=== PATIENT | male | born 1950 | race Caucasian/White ===

== ENCOUNTER 2016-06-04 11:22 | Emergency (ER) | payer MEDICARE, OTHER ==
[~2016-06-04] VITALS: Ht 170.2 cm; Wt 100.0 kg
[2016-06-04] MEDS ORDERED: NITROGLYCERIN SUBLINGUAL 0.4 MG (NITROQUICK) TABLET SL PRN (11:35)
[2016-06-04 11:55] LABS: BASOPHILS % (AUTO) 0 % (0-2); EOSINOPHILS # (AUTO) 0.3 10^3uL; EOSINOPHILS % (AUTO) 3 % (0-4); LYMPHOCYTES # (AUTO) 2.1 X10^3; MEAN CORPUSCULAR HEMOGLOBIN 31.7 PG (26.0-34.0); MEAN CORPUSCULAR HGB CONC 34.2 g/dL (31.0-37.0); MEAN CORPUSCULAR VOLUME 93 FL (80-100); MEAN PLATELET VOLUME 10.9 FL (6.0-9.5); MONOCYTES # (AUTO) 0.7 X10^3; MONOCYTES % (AUTO) 8 % (3-11); NEUTROPHILS # (AUTO) 4.9 X10^3; NEUTROPHILS % (AUTO) 62 % (51-67); PLATELET COUNT 187 10^3uL (150-450); WHITE BLOOD COUNT 7.87 10^3uL (4.0-11.0)
[2016-06-04 12:06] LABS: ALBUMIN 4.5 g/dL (3.4-5.0); ALKALINE PHOSPHATASE 77 U/L (38-126); ANION GAP 15.5 MEQ/L (3-15); BUN/CREATININE RATIO 19 (10-20); CALCULATED IONIZED CALCIUM 3.9 mg/dL (3.8-4.6); CREATINE KINASE 209 U/L (55-170); TOTAL PROTEIN 8.5 g/dL (6.4-8.5)
[2016-06-04 13:03] LABS: BILIRUBIN,URINE Negative (Negative); CLARITY,URINE Clear; COLOR,URINE Yellow; GLUCOSE, URINE (UA) Negative (Negative); LEUKOCYTE ESTERASE ,URINE Negative (Negative); UROBILINOGEN,URINE 0.2 mg/dL (0.2-1.0)
[2016-06-04 13:10] LABS: AMPHETAMINE SCREEN, URINE Negative (Negative); CANNABINOID SCREEN, URINE Negative (Negative); METHAMPHETAMINE SCREEN URINE S NEGATIVE (NEGATIVE); OPIATE SCREEN URINE Negative (Negative); PROPOXYPHENE STAT NEGATIVE (NEGATIVE)
--- NOTE | 2016-06-04 13:28 | NUR ---
Pt notes tightness/strangeness after returning from [place]. MD notified.
[2016-06-04 14:55] LABS: CREATINE KINASE 170 U/L (55-170)
[2016-06-04 15:34] VITALS: BP 120/59
== END 2016-06-04 15:30 | disposition home or self-care (01) ==
LOC: ED 11:24
DX: R07.89 Other chest pain (principal); E11.9 Type 2 diabetes mellitus without complications; Z79.84 Long term (current) use of oral hypoglycemic drugs
CPT/HCPCS: 36415; 71010; 71275; 80053; 81003; 82550; 82553; 83880; 84443; 84484; 85025; 85379; 85610; 86140; 93005; 99284; A9270; G0478; Q9967; 80307; 93010; 99285

== ENCOUNTER → 2016-08-19 | Outpatient (CLI) | payer MEDICARE, OTHER ==
[~2016-08-19] MED LIST: AC500T PO; ACET325T38 PO; ALLO100T PO; CALC-719 PO; CALC300T4 PO; IBUP-793 PO; LSNP20T PO; LVT.1T PO; METF500T3 PO; METF500T4 PO; METF850T2 PO; MULT-35 PO; MV-M1TAB21 PO; NITR0.4T7 SL; RANI150T15 PO; TUMS EX PO; [UNRECOGNIZED DRUG - REMARK]
== END ==
LOC: RT 09:23
PROVIDERS: ATTEND Internal Medicine
DX: R07.9 Chest pain, unspecified (principal)
CPT/HCPCS: 93005